=== PATIENT | male | born 1995 | race Caucasian/White ===

== ENCOUNTER 2018-02-11 12:46 | Emergency (ER) | payer BC | END 2018-02-11 15:49 | disposition home or self-care (01) | LOC: FTE 12:46 | DX: S99.911A Unspecified injury of right ankle, initial encounter (principal); X58.XXXA Exposure to other specified factors, initial encounter; Y92.310 Basketball court as the place of occurrence of the external cause | CPT/HCPCS: 73610; 73610-RT; 73630; 99283-25 ==